=== PATIENT | female | born 1995 | race Caucasian/White ===

== ENCOUNTER 2022-02-18 17:18 | Day surgery (SDC) | payer BC ==
[2022-02-18] MEDS ORDERED: hydrALAZINE 20 MG/ML VIAL SLOW IVP PRN (19:39)
== END 2022-02-18 19:15 | disposition home or self-care (01) ==
LOC: CSHLD/OP 17:18
PROVIDERS: ATTEND Advanced Practice Midwife
DX: O26.853 Spotting complicating pregnancy, third trimester (principal); Z3A.38 38 weeks gestation of pregnancy; Z79.899 Other long term (current) drug therapy; Z88.8 Allergy status to other drugs, medicaments and biological substances; Z98.890 Other specified postprocedural states
CPT/HCPCS: 99283

== ENCOUNTER 2022-02-27 08:32 | Inpatient (IN) | payer BC ==
[2022-02-27 09:27] VITALS: BMI 26.1
[2022-02-27] MEDS ORDERED: Butorphanol Tartrate 1 MG/ML VIAL SLOW IVP PRN (09:58)
[2022-02-27] MEDS ORDERED: Lactated Ringer's 1,000 ML IV PRN (09:58)
[2022-02-27] MEDS ORDERED: hydrALAZINE 20 MG/ML VIAL SLOW IVP PRN (09:58)
[2022-02-27] MEDS ORDERED: Lidocaine 1% (PF) 30 ML VIAL SC PRN (09:58)
[2022-02-27] MEDS ORDERED: Ondansetron PF 4 MG/2 ML Vial IVP PRN ×2 (09:58→21:20)
[2022-02-27] MEDS ORDERED: Promethazine HCl 25 MG/ML VIAL IM PRN ×2 (09:58→21:20)
[2022-02-27] MEDS ORDERED: HYDROcodone/Acetaminophen 5/325 mg Tablet PO PRN ×2 (10:00)
[2022-02-27] MEDS ORDERED: Misoprostol 200 MCG TAB PR PRN (10:00)
[2022-02-27] MEDS ORDERED: NS w/ Oxytocin 30 units 500 ML IV SCH ×2 (10:00→19:52)
[2022-02-27 10:12] LABS: Hemoglobin 12.3 g/dL (12.0-15.5); Mean Corpuscular HGB CONC 34.3 g/dL (32.0-36.0); Mean Corpuscular Hemoglobin 30.9 pg (27.0-33.0); Mean Corpuscular Volume 90.2 fl (81.6-98.3); Mean Platelet Volume 11.6 fl (7.4-10.4); Platelet Count 307 10x3/uL (150-450); Red Blood Cell (RBC) Count 3.98 10x6/uL (3.90-5.03); White Blood Cell (WBC) Count 10.2 10x3/uL (3.5-10.5)
[2022-02-27 10:52] LABS: Syphilis Antibody Nonreactive (Nonreactive); Syphilis Antibody Index 0.03 S/CO (<1.00 Non-Reactive)
[2022-02-27 10:54] LABS: HBSAg Index 0.13 S/CO (0-0.99); Hep B Surf Ag Non-Reactive S/CO (NonReactive)
[2022-02-27 11:47] LABS: SARS-CoV-2 NAA Rapid Test Not Detected (NotDetected)
[2022-02-27] MEDS ORDERED: Bupivacaine 0.25% HCL 30 ML VIAL ONE (15:00)
[2022-02-27] MEDS ORDERED: Fentanyl 2 mcg/Bup 0.1% Cadd 100 ML ONE (20:42)
[2022-02-27] MEDS ORDERED: Lactated Ringer's 500 ML IV PRN (21:20)
[2022-02-27] MEDS ORDERED: Moisturizing Cream (Eucerin) 113 GM JAR TOP PRN (21:20)
[2022-02-27] MEDS ORDERED: Naloxone HCl 0.4 mg/ml Vial IVP PRN ×2 (21:20)
[2022-02-27] MEDS ORDERED: diphenhydrAMINE 50 MG/ML VIAL IVP PRN (21:20)
[2022-02-27] MEDS ORDERED: ePHEDrine Sulfate 50 MG/10 ML VIAL SLOW IVP PRN (21:20)
[2022-02-27] MEDS ORDERED: Acetaminophen 325 MG TAB PO PRN (21:20)
[2022-02-27] MEDS ORDERED: Communication Order-Pharmacy FS SCH (21:30)
[2022-02-27] MEDS ORDERED: Fentanyl 2 mcg/Bupivacaine 0.1% Cassette 100 ML EPIDURAL SCH (21:30)
[2022-02-28] MEDS ORDERED: Fentanyl 2 mcg/Bup 0.1% Cadd 100 ML ONE (05:33)
[2022-02-28] MEDS ORDERED: Benzocaine-Menthol 82.5 ML CAN TOP PRN (11:52)
[2022-02-28] MEDS ORDERED: hydrALAZINE 20 MG/ML VIAL SLOW IVP PRN (11:52)
[2022-02-28] MEDS ORDERED: Ondansetron PF 4 MG/2 ML Vial IVP PRN (11:52)
[2022-02-28] MEDS ORDERED: Milk Of Magnesia 30 ML UDCUP PO PRN (11:52)
[2022-02-28] MEDS ORDERED: Bisacodyl 10 MG SUPP PR PRN (11:52)
[2022-02-28] MEDS ORDERED: Misoprostol 200 MCG TAB VAG PRN (11:52)
[2022-02-28] MEDS ORDERED: NS w/ Oxytocin 30 units 500 ML IV SCH (11:52)
[2022-02-28] MEDS ORDERED: Boostrix 0.5 ML (Tdap) VIAL (>/=7 yrs of age) IM ONE (11:52)
[2022-02-28] MEDS ORDERED: HYDROcodone/Acetaminophen 5/325 mg Tablet PO PRN (11:52)
[2022-02-28] MEDS ORDERED: Docusate 100 MG CAP PO SCH (12:15)
[2022-02-28] MEDS ORDERED: Prenatal Vitamin 1 TAB PO SCH (12:15)
[2022-02-28] MEDS: Acetaminophen 500 MG TAB PO PRN (15:13)
[2022-02-28] MEDS: HYDROcodone/Acetaminophen 5/325 mg Tablet PO PRN (18:30)
[2022-02-28] MEDS: Ferrous Sulfate 325 MG TAB PO SCH (19:30)
[2022-02-28] MEDS: Docusate 100 MG CAP PO SCH (21:29)
[2022-03-01] MEDS: HYDROcodone/Acetaminophen 5/325 mg Tablet PO PRN (05:37)
[2022-03-01] MEDS: Ferrous Sulfate 325 MG TAB PO SCH (07:19)
[2022-03-01 08:10] VITALS: BP 131/73; TEMP 98
[2022-03-01] MEDS: Docusate 100 MG CAP PO SCH (08:43)
[2022-03-01] MEDS ORDERED: Prenatal Vitamin 1 TAB PO SCH (09:00)
[2022-03-01] MEDS: Acetaminophen 500 MG TAB PO PRN (10:55)
== END 2022-03-01 17:31 | disposition home or self-care (01) | DRG 807 ==
LOC: CSHLD/OP 08:32 → CSHLD 09:34 → CSHPED 02-28 11:30
PROVIDERS: ADMIT Obstetrics & Gynecology; ATTEND Obstetrics & Gynecology
PROC: 10E0XZZ Delivery of Products of Conception, External Approach (ICD-10-PCS; principal; 2022-02-28)
PROC: 0KQM0ZZ Repair Perineum Muscle, Open Approach (ICD-10-PCS; 2022-02-28)
DX: O43.123 Velamentous insertion of umbilical cord, third trimester (principal); Z37.0 Single live birth; O70.1 Second degree perineal laceration during delivery; Z20.822 Contact with and (suspected) exposure to COVID-19; Z88.6 Allergy status to analgesic agent; Z3A.40 40 weeks gestation of pregnancy
CPT/HCPCS: 36415; 51702; 85027; 86780; 86850; 86900; 86901; 87340; 99285; J2590; S0020; U0002

== ENCOUNTER 2024-03-07 03:09 | Inpatient (IN) | payer BC ==
[2024-03-07] MEDS ORDERED: hydrALAZINE 20 MG/ML VIAL SLOW IVP PRN ×3 (03:26→06:28)
[2024-03-07] MEDS ORDERED: Promethazine HCl 25 MG/ML VIAL IM PRN (03:44)
[2024-03-07] MEDS ORDERED: Acetaminophen 500 MG TAB PO PRN (03:44)
[2024-03-07] MEDS ORDERED: Carboprost 250 MCG/ML AMP IM PRN (03:44)
[2024-03-07] MEDS ORDERED: Misoprostol 200 MCG TAB PR PRN (03:44)
[2024-03-07] MEDS ORDERED: fentaNYL 50 mcg/mL 1 mL Vial SLOW IVP PRN (03:44)
[2024-03-07] MEDS ORDERED: Diphenoxylate HCl/Atropine Tablet PO PRN (03:44)
[2024-03-07] MEDS ORDERED: Tranexamic Acid 1,000 MG/10 ML VIAL IVP PRN (03:44)
[2024-03-07] MEDS ORDERED: Methylergonovine 0.2 MG/ML VIAL IM PRN (03:44)
[2024-03-07] MEDS ORDERED: Oxytocin 30 units/NS 500 ML 500 ML IV SCH ×3 (03:45→06:28)
[2024-03-07] MEDS ORDERED: Lactated Ringer's 1,000 ML IV SCH (03:45)
[2024-03-07 03:53] VITALS: BMI 25.8
[2024-03-07 04:00] LABS: Hematocrit 40.5 % (34.9-44.5); Hemoglobin 13.6 g/dL (12.0-15.5); Mean Corpuscular HGB CONC 33.6 g/dL (32.0-36.0); Mean Corpuscular Hemoglobin 29.4 pg (27.0-33.0); Mean Corpuscular Volume 87.5 fL (81.6-98.3); Mean Platelet Volume 10.4 fL (7.4-10.4); Platelet Count 268 10x3/uL (150-450); RBC Distribution Width 11.9 % (11.5-14.5); Red Blood Cell (RBC) Count 4.63 10x6/uL (3.90-5.03)
[2024-03-07] MEDS: Ondansetron PF 4 MG/2 ML Vial IVP PRN (04:14)
[2024-03-07 04:40] LABS: HBsAg Index 0.16 S/CO (0-0.99); Hep B Surf Ag - L&D Non-Reactive S/CO (NonReactive)
[2024-03-07 04:41] LABS: Syphilis Antibody Nonreactive (Nonreactive); Syphilis Antibody Index 0.03 S/CO (<1.00 Non-Reactive)
[2024-03-07] MEDS: Oxytocin 30 units/NS 500 ML 500 ML IV SCH (05:51)
[2024-03-07] MEDS: Lidocaine 1% (PF) 30 ML VIAL SC PRN (05:54)
[2024-03-07] MEDS ORDERED: diphenhydrAMINE 25 MG CAP PO PRN (06:28)
[2024-03-07] MEDS ORDERED: HYDROcodone/Acetaminophen 5/325 mg Tablet PO PRN ×2 (06:28)
[2024-03-07] MEDS ORDERED: Milk Of Magnesia 30 ML UDCUP PO PRN (06:28)
[2024-03-07] MEDS ORDERED: Bisacodyl 10 MG SUPP PR PRN (06:28)
[2024-03-07] MEDS ORDERED: Ondansetron PF 4 MG/2 ML Vial IVP PRN (06:28)
[2024-03-07] MEDS ORDERED: Boostrix 0.5 ML (Tdap) VIAL (>/=7 yrs of age) IM ONE (06:28)
[2024-03-07] MEDS: Ibuprofen 800 MG TAB PO SCH (06:37)
[2024-03-07] MEDS: Prenatal Vitamin 1 TAB PO SCH (08:41)
[2024-03-07] MEDS: Docusate 100 MG CAP PO SCH (08:41)
[2024-03-07] MEDS: Ferrous Sulfate 325 MG TAB PO SCH (10:11)
[2024-03-07] MEDS: Benzocaine-Menthol 82.5 ML CAN TOP PRN (15:54)
[2024-03-07] MEDS: Lactated Ringer's 1,000 ML IV SCH (18:46)
[2024-03-08 08:12] VITALS: BP 109/58; TEMP 98.3
== END 2024-03-08 11:55 | disposition home or self-care (01) | DRG 807 ==
LOC: CSHLD/OP 03:09 → CSHLD 03:42 → CSHPP 07:35
PROVIDERS: ADMIT Obstetrics & Gynecology; ATTEND Obstetrics & Gynecology
PROC: 10E0XZZ Delivery of Products of Conception, External Approach (ICD-10-PCS; principal; 2024-03-07)
PROC: 0HQ9XZZ Repair Perineum Skin, External Approach (ICD-10-PCS; 2024-03-07)
DX: O48.0 Post-term pregnancy (principal); Z37.0 Single live birth; Z3A.40 40 weeks gestation of pregnancy; O70.0 First degree perineal laceration during delivery
CPT/HCPCS: 36415; 85027; 86780; 86850; 86900; 86901; 87340; 99285; J2405; J2590